=== PATIENT | female | born 1990 | race Caucasian/White ===

== ENCOUNTER 2018-12-22 11:20 | Emergency (ER) | payer BC ==
[2018-12-22 12:09] LABS: CHLORIDE,CL 104 mmol/L (98-107); SODIUM,NA 133 mmol/L (136-145)
--- NOTE | 2018-12-22 14:08 | CR ---
EXAMINATION: Two-view chest (PA and Lateral views). HISTORY: V/Q. prerequisite. FINDINGS: The trachea is midline. The cardiomediastinal silhouette is within normal limits. No pulmonary infiltrates, effusions or pneumothorax. Osseous structures appear unremarkable. IMPRESSION: No acute cardiopulmonary process.
--- NOTE | 2018-12-22 15:23 | NM ---
EXAMINATION: NM ventilation/perfusion study HISTORY: Chest pain COMPARISON: Chest radiograph from the same day TECHNIQUE: Multiplanar imaging obtained of the chest following the administration of 43.1 mCi of technetium 99m labeled DTPA and 3.2 mCi of technetium 99m labeled MAA. FINDINGS: There is no ventilation or perfusion defect. No ventilation or perfusion mismatch. Overall the ventilation and perfusion appear normal. IMPRESSION: Low probability for a pulmonary embolism.
--- NOTE | 2018-12-22 15:29 | EDM.PDOC ---
ED HPI GENERAL MEDICAL PROBLEM - General Chief Complaint: Chest Pain Stated Complaint: CHEST PAIN Time Seen by Provider: 12/22/18 11:22 Source of Information: Reports: Patient History Limitations: Reports: No Limitations - History of Present Illness INITIAL COMMENTS - FREE TEXT/NARRATIVE: HISTORY AND PHYSICAL: History of present illness: Patient is a 28-year-old female who presents to the ED today with concern of mid sternal chest pain 2 days. Patient states she has a history of pulmonary embolism requiring TPA couple years ago. Patient states she is on chronic anticoagulation for life due to this PE. Patient states she is ago she started having midsternal chest pain that was similar to how she felt with her PE. However, she states the pain is less painful this time. Patient denies any other symptoms or injury. Patient denies any other health history. Patient denies fever, chills, shortness of breath, or cough. Denies headache, neck stiff ness, change in vision, syncope, or near syncope. Denies nausea, vomiting, abdominal pain, diarrhea, constipation, or dysuria. Has not noted any blood in urine or stool. Patient has been eating and drinking appropriately. Review of systems: As per history of present illness and below otherwise all systems reviewed and negative. Past medical history: As per history of present illness and as reviewed below otherwise noncontributory. Surgical history: As per history of present illness and as reviewed below otherwise noncontributory. Social history: See social history for further information Family history: As per history of present illness and as reviewed below otherwise noncontributory. Physical exam: General: Patient is alert, oriented, and in no acute distress. Patient sitting comfortably on exam table. HEENT: Atraumatic, normocephalic, pupils equal and reactive bilaterally, negative for conjunctival pallor or scleral icterus, mucous membranes moist, TMs normal bilaterally, throat clear, neck supple, nontender, trachea midline. No drooling or trismus noted. No meningeal signs. No hot potato voice noted. Lungs: Clear to auscultation, breath sounds equal bilaterally, chest nontender. Heart: S1S2, regular rate and rhythm without overt murmur Abdomen: Soft, nondistended, nontender. Negative for masses or hepatosplenomegaly. Negative for costovertebral tenderness. Pelvis: Stable nontender. Genitourinary: Deferred. Rectal: Deferred. Skin: Intact, warm, dry. No lesions or rashes noted. Extremities: Atraumatic, negative for cords or calf pain. Neurovascular unremarkable. Neuro: Awake, alert, oriented. Cranial nerves II through XII unremarkable. Cerebellum unremarkable. Motor and sensory unremarkable throughout. Exam nonfocal. Notes: Dr. Fernandez verbally involved in patient care. Patient does have an allergy to contrast dyes with anaphylaxis. V/Q scan was arranged today for evaluation for PE. Discussed the importance for follow with primary care provider. Voices understanding and is agreeable to plan of care. Denies any further questions or concerns at this time. Diagnostics: CBC, CMP, UA, urine hCG, chest x-ray, VQ scan, EKG, troponin Therapeutics: None Prescription: None Impression: Chest pain, unspecified H/O PE s/p chronic anticoagulation use Plan: 1. Alternate abdomen and Tylenol as directed for pain and discomfort. Follow with her primary care provider as discussed. 2. Return to the ED as needed and as discussed. Definitive disposition and diagnosis as appropriate pending reevaluation and review of above. - Related Data Allergies Allergy/AdvReac Type Severity Reaction Status Date / Time Iodine and Iodide Containing Allergy Anaphylactic Verified 12/22/18 11:29 Produc Shock Penicillins Allergy Rash Verified 12/22/18 11:29 Pork/Porcine Containing Allergy Anaphylactic Verified 12/22/18 11:29 Products Shock propranolol Allergy Rash Verified 12/22/18 11:29 shellfish derived Allergy Anaphylactic Verified 12/22/18 11:29 Shock tramadol Allergy Rash Verified 12/22/18 11:29 Home Meds: Home Meds Apixaban [Eliquis] 12/22/18 [History] Apixaban [Eliquis] 2.5 mg PO BID 12/22/18 [History] Control 12/22/18 [History] EPINEPHrine [Epinephrine] 12/22/18 [History] Fluticasone Propionate [Flovent HFA] 12/22/18 [History] Nortriptyline 20 mg PO BEDTIME 12/22/18 [History] SUMAtriptan Succinate [Imitrex] 25 mg PO PRN 12/22/18 [History] Past Medical History Respiratory History: Reports: PE Musculoskeletal History: Reports: Fibromyalgia - Past Surgical History GI Surgical History: Reports: Cholecystectomy Social & Family History - Family History Family Medical History: Noncontributory - Tobacco Use Smoking Status *Q: Never Smoker - Caffeine Use Caffeine Use: Reports: Coffee - Recreational Drug Use Recreational Drug Use: No ED ROS GENERAL - Review of Systems Review Of Systems: ROS reveals no pertinent complaints other than HPI. ED EXAM, GENERAL - Physical Exam Exam: See Below (see dictation) Course - Vital Signs Last Recorded V/S: Last Vital Signs Temp 36.1 C 12/22/18 11:33 Pulse 69 12/22/18 14:31 Resp 20 12/22/18 14:31 BP 118/77 12/22/18 14:31 Pulse Ox 97 12/22/18 14:31 - Orders/Labs/Meds Orders: Active Orders 24 hr Category Date Time Status EKG Documentation Completion [RC] STAT Care 12/22/18 11:25 Active Labs: Laboratory Tests 12/22/18 12/22/18 12/22/18 Range/Units 11:30 11:30 11:56 WBC 6.64 (4.0-11.0) K/uL RBC 5.06 (4.30-5.90) M/uL Hgb 14.8 (12.0-16.0) g/dL Hct 43.7 (36.0-46.0) % MCV 86.4 (80.0-98.0) fL MCH 29.2 (27.0-32.0) pg MCHC 33.9 (31.0-37.0) g/dL RDW Std Deviation 39.8 (28.0-62.0) fl RDW Coeff of Galen 13 (11.0-15.0) % Plt Count 261 (150-400) K/uL MPV 10.80 (7.40-12.00) fL Neut % (Auto) 54.5 (48.0-80.0) % Lymph % (Auto) 37.2 (16.0-40.0) % Sumner % (Auto) 6.6 (0.0-15.0) % Eos % (Auto) 1.4 (0.0-7.0) % Baso % (Auto) 0.3 (0.0-1.5) % Neut # (Auto) 3.6 (1.4-5.7) K/uL Lymph # (Auto) 2.5 H (0.6-2.4) K/uL Sumner # (Auto) 0.4 (0.0-0.8) K/uL Eos # (Auto) 0.1 (0.0-0.7) K/uL Baso # (Auto) 0.0 (0.0-0.1) K/uL Nucleated RBC % 0.0 /100WBC Nucleated RBCs # 0 K/uL Sodium 133 L (136-145) mmol/L Potassium 4.0 (3.5-5.1) mmol/L Chloride 104 (98-107) mmol/L Carbon Dioxide 21.9 (21.0-32.0) mmol/L BUN 12 (7.0-18.0) mg/dL Creatinine 0.8 (0.6-1.0) mg/dL Est Cr Clr Drug Dosing 98.01 mL/min Estimated GFR (MDRD) > 60.0 ml/min Glucose 111 H (74-106) mg/dL Calcium 8.6 (8.5-10.1) mg/dL Total Bilirubin 0.5 (0.2-1.0) mg/dL AST 27 (15-37) IU/L ALT 33 (14-63) IU/L Alkaline Phosphatase 48 (46-116) U/L Troponin I < 0.050 (0.000-0.056) ng/mL Total Protein 7.2 (6.4-8.2) g/dL Albumin 3.7 (3.4-5.0) g/dL Globulin 3.5 (2.6-4.0) g/dL Albumin/Globulin Ratio 1.1 (0.9-1.6) Urine Color YELLOW Urine Appearance CLEAR Urine pH 6.0 (5.0-8.0) Ur Specific [place] 1.025 (1.001-1.035) Urine Protein NEGATIVE (NEGATIVE) mg/dL Urine Glucose (UA) NEGATIVE (NEGATIVE) mg/dL Urine Ketones NEGATIVE (NEGATIVE) mg/dL Urine Occult Blood NEGATIVE (NEGATIVE) Urine Nitrite NEGATIVE (NEGATIVE) Urine Bilirubin NEGATIVE (NEGATIVE) Urine Urobilinogen 0.2 (<2.0) EU/dL Ur Leukocyte Esterase NEGATIVE (NEGATIVE) Urine HCG, Qual (NEGATIVE) 12/22/18 Range/Units 11:56 WBC (4.0-11.0) K/uL RBC (4.30-5.90) M/uL Hgb (12.0-16.0) g/dL Hct (36.0-46.0) % MCV (80.0-98.0) fL MCH (27.0-32.0) pg MCHC (31.0-37.0) g/dL RDW Std Deviation (28.0-62.0) fl RDW Coeff of Galen (11.0-15.0) % Plt Count (150-400) K/uL MPV (7.40-12.00) fL Neut % (Auto) (48.0-80.0) % Lymph % (Auto) (16.0-40.0) % Sumner % (Auto) (0.0-15.0) % Eos % (Auto) (0.0-7.0) % Baso % (Auto) (0.0-1.5) % Neut # (Auto) (1.4-5.7) K/uL Lymph # (Auto) (0.6-2.4) K/uL Sumner # (Auto) (0.0-0.8) K/uL Eos # (Auto) (0.0-0.7) K/uL Baso # (Auto) (0.0-0.1) K/uL Nucleated RBC % /100WBC Nucleated RBCs # K/uL Sodium (136-145) mmol/L Potassium (3.5-5.1) mmol/L Chloride (98-107) mmol/L Carbon Dioxide (21.0-32.0) mmol/L BUN (7.0-18.0) mg/dL Creatinine (0.6-1.0) mg/dL Est Cr Clr Drug Dosing mL/min Estimated GFR (MDRD) ml/min Glucose (74-106) mg/dL Calcium (8.5-10.1) mg/dL Total Bilirubin (0.2-1.0) mg/dL AST (15-37) IU/L ALT (14-63) IU/L Alkaline Phosphatase (46-116) U/L Troponin I (0.000-0.056) ng/mL Total Protein (6.4-8.2) g/dL Albumin (3.4-5.0) g/dL Globulin (2.6-4.0) g/dL Albumin/Globulin Ratio (0.9-1.6) Urine Color Urine Appearance Urine pH (5.0-8.0) Ur Specific Cambridge (1.001-1.035) Urine Protein (NEGATIVE) mg/dL Urine Glucose (UA) (NEGATIVE) mg/dL Urine Ketones (NEGATIVE) mg/dL Urine Occult Blood (NEGATIVE) Urine Nitrite (NEGATIVE) Urine Bilirubin (NEGATIVE) Urine Urobilinogen (<2.0) EU/dL Ur Leukocyte Esterase (NEGATIVE) Urine HCG, Qual NEGATIVE (NEGATIVE) Departure - Departure Time of Disposition: 15:28 Disposition: Home, Self-Care 01 Clinical Impression: History of pulmonary embolus (PE), Anticoagulated Chest pain Qualifiers: Chest pain type: unspecified Qualified Code(s): R07.9 - Chest pain, unspecified - Discharge Information Instructions: Nonspecific Chest Pain, [id number] Referrals: PCP,Unknown [Primary Care Provider] - Forms: ED Department Discharge Additional Instructions: The following information is given to patients seen in the emergency department who are being discharged to home. This information is to outline your options for follow-up care. We provide all patients seen in our emergency department with a follow-up referral. The need for follow-up, as well as the timing and circumstances, are variable depending upon the specifics of your emergency department visit. If you don't have a primary care physician on staff, we will provide you with a referral. We always advise you to contact your personal physician following an emergency department visit to inform them of the circumstance of the visit and for follow-up with them and/or the need for any referrals to a consulting specialist. The emergency department will also refer you to a specialist when appropriate. This referral assures that you have the opportunity for follow-up care with a specialist. All of these measure are taken in an effort to provide you with optimal care, which includes your follow-up. Under all circumstances we always encourage you to contact your private physician who remains a resource for coordinating your care. When calling for follow-up care, please make the office aware that this follow-up is from your recent emergency room visit. If for any reason you are refused follow-up, please contact the [facility] Emergency Department at and asked to speak to the emergency department charge nurse. [facility] [address] [place] [address] [facility] [address] [place] [id number] 1. Alternate abdomen and Tylenol as directed for pain and discomfort. Follow with her primary care provider as discussed. 2. Return to the ED as needed and as discussed. - My Orders Last 24 Hours: My Active Orders 12/22/18 11:25 EKG Documentation Completion [RC] STAT - Assessment/Plan Last 24 Hours: My Active Orders 12/22/18 11:25 EKG Documentation Completion [RC] STAT
== END 2018-12-22 15:55 | disposition home or self-care (01) ==
LOC: MW.ED 11:20
DX: R07.2 Precordial pain (principal); Z86.711 Personal history of pulmonary embolism; Z79.01 Long term (current) use of anticoagulants; Z79.899 Other long term (current) drug therapy; Z88.0 Allergy status to penicillin; Z88.6 Allergy status to analgesic agent; Z91.011 Allergy to milk products; Z88.8 Allergy status to other drugs, medicaments and biological substances
CPT/HCPCS: 36415; 71046; 78582; 80053; 81003; 81025; 84484; 85025; 93005; 99285; A9540; A9567; 99284

== ENCOUNTER 2019-06-26 21:53 | Emergency (ER) | payer BC ==
--- NOTE | 2019-06-26 22:13 | EDM.PDOC ---
ED HPI GENERAL MEDICAL PROBLEM - General Chief Complaint: Lower Extremity Injury/Pain Stated Complaint: FALL Time Seen by Provider: 06/26/19 21:55 - History of Present Illness INITIAL COMMENTS - FREE TEXT/NARRATIVE: HISTORY AND PHYSICAL: History of present illness: Patient is a healthy 29-year-old female who has a history of a PE and is currently on anticoagulation therapy, eliquis, which she will be taking for life according to her history and who presents after she fell down some stairs twisting and landing on her left knee and ankle. The patient did not hit her head pass out or blackout and has no head neck or back pain but because she is on anticoagulation therapy this case was called as a trauma alert. The patient denies any chest pain or shortness of breath no abdominal pain and she denies . She has no upper extremity complaints and no other complaints of trauma as a result of this fall. She says the pain is mostly localized in her ankle but she also has pain at the knee and the hip which she would also like evaluated. Review of systems: As per history of present illness and below otherwise all systems reviewed and negative. Past medical history: As per history of present illness and as reviewed below otherwise noncontributory. Surgical history: As per history of present illness and as reviewed below otherwise noncontributory. Social history: No reported history of drug or alcohol abuse. Family history: As per history of present illness and as reviewed below otherwise noncontributory. Physical exam: General: Well-developed well-nourished mildly overweight female who is nontoxic and vital signs are noted by me. HEENT: Atraumatic, normocephalic, pupils reactive, negative for conjunctival pallor or scleral icterus, mucous membranes moist, throat clear, neck supple, nontender, trachea midline. No midline step-offs tenderness to apex of the cervical spine Lungs: Clear to auscultation, breath sounds equal bilaterally, chest nontender. Heart: S1S2, regular, and rhythm no overt murmurs Abdomen: Soft, nondistended, nontender. Negative for masses or hepatosplenomegaly. Negative for costovertebral tenderness. Pelvis: Stable nontender. Some minimal tenderness at the left hip but there is no evidence of any soft tissue injuries or ecchymosis appreciated Genitourinary: Deferred. Rectal: Deferred. Extremities: Atraumatic full range of motion of all extremities with the exception of the left lower extremity where there is some mild tenderness with palpation at the left knee and a very minute superficial skin abrasion seen but no joint effusion ecchymosis or anatomic malalignment, there is more tenderness with minimal soft tissue swelling of the left ankle bilaterally extending into the heel but there is no foot metatarsal or toe tenderness defects or deformities. At no area is there ecchymosis or erythema appreciated and there are no joint effusions., Neurovascular unremarkable. Neuro: Awake, alert, oriented. Cranial nerves II through XII unremarkable. Cerebellum unremarkable. Motor and sensory unremarkable throughout. Exam nonfocal. Back: There are no midline step-offs tenderness defects of the thoracic or lumbar spine and no posterior pelvis tenderness Diagnostics: X-ray of hip with pelvis, left knee, left ankle The patient refuses a test showing me that she is not and she is aware of the x-rays that are being performed Therapeutics: Packet, patient declines pain medication Neoprene sling to knee, Manuel bandage to ankle, crutches Due to the patient being on anticoagulation therapy and sustaining a fall this case was called as a trauma alert and I will involve Dr. Cullen her surgeon as needed pending the above results Impression: Fall with injury to left ankle knee and hip Definitive disposition and diagnosis as appropriate pending reevaluation and review of above. left ankle;left knee Pain Score (Numeric/FACES): 9 - Related Data Allergies Allergy/AdvReac Type Severity Reaction Status Date / Time Iodine and Iodide Containing Allergy Anaphylactic Verified 12/22/18 11:29 Produc Shock Penicillins Allergy Rash Verified 12/22/18 11:29 Pork/Porcine Containing Allergy Anaphylactic Verified 12/22/18 11:29 Products Shock propranolol Allergy Rash Verified 12/22/18 11:29 shellfish derived Allergy Anaphylactic Verified 12/22/18 11:29 Shock tramadol Allergy Rash Verified 12/22/18 11:29 Home Meds: Home Meds Apixaban [Eliquis] 12/22/18 [History] Apixaban [Eliquis] 2.5 mg PO BID 12/22/18 [History] Control 12/22/18 [History] EPINEPHrine [Epinephrine] 12/22/18 [History] Fluticasone Propionate [Flovent HFA] 12/22/18 [History] Nortriptyline 20 mg PO BEDTIME 12/22/18 [History] SUMAtriptan Succinate [Imitrex] 25 mg PO PRN 12/22/18 [History] Past Medical History Respiratory History: Reports: PE Musculoskeletal History: Reports: Fibromyalgia - Past Surgical History GI Surgical History: Reports: Cholecystectomy Social & Family History - Family History Family Medical History: Noncontributory - Caffeine Use Caffeine Use: Reports: Coffee Review of Systems - Review of Systems Review Of Systems: Comprehensive ROS is negative, except as noted in HPI. ED EXAM, GENERAL - Physical Exam Exam: See Below (see Dictation) Course - Vital Signs Last Recorded V/S: Last Vital Signs Temp 36.5 C 06/26/19 21:55 Pulse 95 06/26/19 21:55 Resp 18 06/26/19 21:55 BP 150/91 H 06/26/19 21:55 Pulse Ox 98 06/26/19 21:55 - Orders/Labs/Meds Orders: Active Orders 24 hr Category Date Time Status Hip Min 2V or 3V w Pelvis Lt [CR] Stat Exams 06/26/19 22:06 Taken DME for Discharge [COMM] Stat Oth 06/26/19 22:55 Ordered Departure - Departure Time of Disposition: 22:56 Disposition: Home, Self-Care 01 Condition: Good Clinical Impression: Fall Qualifiers: Encounter type: initial encounter Qualified Code(s): W19.XXXA - Unspecified fall, initial encounter Injury of left ankle Qualifiers: Encounter type: initial encounter Qualified Code(s): S99.912A - Unspecified injury of left ankle, initial encounter Injury of left knee Qualifiers: Encounter type: initial encounter Qualified Code(s): S89.92XA - Unspecified injury of left lower leg, initial encounter - Discharge Information Referrals: PCP,None [Primary Care Provider] - Forms: ED Department Discharge Additional Instructions: The following information is given to patients seen in the emergency department who are being discharged to home. This information is to outline your options for follow-up care. We provide all patients seen in our emergency department with a follow-up referral. The need for follow-up, as well as the timing and circumstances, are variable depending upon the specifics of your emergency department visit. If you don't have a primary care physician on staff, we will provide you with a referral. We always advise you to contact your personal physician following an emergency department visit to inform them of the circumstance of the visit and for follow-up with them and/or the need for any referrals to a consulting specialist. The emergency department will also refer you to a specialist when appropriate. This referral assures that you have the opportunity for followup care with a specialist. All of these measure are taken in an effort to provide you with optimal care, which includes your followup. Under all circumstances we always encourage you to contact your private physician who remains a resource for coordinating your care. When calling for followup care, please make the office aware that this follow-up is from your recent emergency room visit. If for any reason you are refused follow-up, please contact the [facility] emergency department at and ask to speak to the emergency department charge nurse. [facility] Special[facility] - [facility] Professional [address], [address] [place] [address] Elevate the area as much as possible and use [id number] pain medications as you choose. Please call and schedule follow-up appointment in the Ortho clinic for reevaluation and further care and return to ER as needed and as discussed. Use the Manuel bandage to your ankle and the neoprene splint to your knee for comfort and use crutches for the next few days to rest the area. Sepsis Event Note - Focused Exam Vital Signs: Vital Signs Temp Pulse Resp BP Pulse Ox 06/26/19 21:55 36.5 C 95 18 150/91 H 98 Date Exam was Performed: 06/26/19 Time Exam was Performed: 22:55 - My Orders Last 24 Hours: My Active Orders 06/26/19 22:06 Hip Min 2V or 3V w Pelvis Lt [CR] Stat 06/26/19 22:55 DME for Discharge [COMM] Stat - Assessment/Plan Last 24 Hours: My Active Orders 06/26/19 22:06 Hip Min 2V or 3V w Pelvis Lt [CR] Stat 06/26/19 22:55 DME for Discharge [COMM] Stat
--- NOTE | 2019-06-26 22:51 | CR ---
INDICATION: fell down stairs, on blood thinner TECHNIQUE: Left knee 3 views. COMPARISON: None. FINDINGS: Bones: Alignment is normal. No fractures or bone lesions. Joint spaces: Unremarkable. Soft tissues: Unremarkable. IMPRESSION: Unremarkable left knee. Dictated by: Caesar Ruby MD @ 06/26/2019 22:49:10 (Electronically Signed)
--- NOTE | 2019-06-26 22:54 | CR ---
INDICATION: Trauma TECHNIQUE: Three views left ankle COMPARISON: None FINDINGS: Bones: Alignment is normal. No fractures. Plantar calcaneal spur. Joint spaces: Unremarkable. Soft tissues: Unremarkable. IMPRESSION: No evidence of acute trauma. Dictated by Caesar Ruby MD @ 06/26/2019 10:52:12 PM Dictated by: Caesar Ruby MD @ 06/26/2019 22:52:18 (Electronically Signed)
--- NOTE | 2019-06-26 22:56 | CR ---
INDICATION: Fall TECHNIQUE: AP pelvis and two views left hip COMPARISON: None FINDINGS: Bones: Alignment is normal. No fractures or bone lesions. Joint spaces: Unremarkable. Soft tissues: Unremarkable. IMPRESSION: No evidence of acute trauma. Dictated by Caesar Ruby MD @ 06/26/2019 10:54:11 PM Dictated by: Caesar Ruby MD @ 06/26/2019 22:54:22 (Electronically Signed)
== END 2019-06-26 23:08 | disposition home or self-care (01) ==
LOC: MW.ED 21:53
DX: S80.212A Abrasion, left knee, initial encounter (principal); S99.912A Unspecified injury of left ankle, initial encounter; S79.912A Unspecified injury of left hip, initial encounter; Z86.711 Personal history of pulmonary embolism; Z88.8 Allergy status to other drugs, medicaments and biological substances; Z91.013 Allergy to seafood; Z91.041 Radiographic dye allergy status; Z88.0 Allergy status to penicillin; Z91.048 Other nonmedicinal substance allergy status; Z88.5 Allergy status to narcotic agent; Z79.01 Long term (current) use of anticoagulants; W10.8XXA Fall (on) (from) other stairs and steps, initial encounter
CPT/HCPCS: 73502-26-LT; 73502-LT; 73562-26-LT; 73562-LT; 73610-26-LT; 73610-LT; 99283; 99283-25

== ENCOUNTER 2019-09-05 09:29 | Emergency (ER) | payer BC ==
[2019-09-05] MEDS ORDERED: Sodium Chloride 0.9% 1,000 ML IV ONE (10:07)
[2019-09-05] MEDS ORDERED: Sodium Chloride 0.9% 2.5 ML Syringe FLUSH PRN (10:08)
[2019-09-05] MEDS ORDERED: Sodium Chloride 0.9% 10 ML Syringe FLUSH PRN (10:08)
--- NOTE | 2019-09-05 10:23 | EDM.PDOC ---
ED HPI GENERAL MEDICAL PROBLEM - General Chief Complaint: Headache Stated Complaint: MIGRAIN AND HEART PALPATATIONS Time Seen by Provider: 09/05/19 10:16 Source of Information: Reports: Patient History Limitations: Reports: No Limitations - History of Present Illness INITIAL COMMENTS - FREE TEXT/NARRATIVE: HISTORY AND PHYSICAL: History of present illness: Patient is a 29-year-old female presents to the ED with complaint of a migraine. Patient has history of migraines and sees the neurology [employer] in [facility]. Patient states she has been getting botox injections. She also takes Imitrex. She states she saw her [employer] on Wednesday and got an IM toradol injection which normally helps but states it is no longer working this time. Patient states she has continued to have a 9/10 headache that is on the left side of her head and throbs. She reports photophobia and phonophobia as well as nausea and vomiting. She denies fevers, chills, head injury or trauma. She denies visual changes. Patient has had an MRI and full negative work up with neurology for her migraines. She states this one is not new or different than ones she had in the past prior to receiving botox injections. Review of systems: As per history of present illness and below otherwise all systems reviewed and negative. Past medical history: As per history of present illness and as reviewed below otherwise noncontributory. Surgical history: As per history of present illness and as reviewed below otherwise noncontributory. Social history: No reported history of drug or alcohol abuse. Family history: As per history of present illness and as reviewed below otherwise noncontributory. Physical exam: General: Patient sitting comfortably in no acute distress and nontoxic appearing HEENT: Atraumatic, normocephalic, pupils reactive, negative for conjunctival pallor or scleral icterus, mucous membranes moist, throat clear, neck supple, nontender, trachea midline. No meningeal signs. Lungs: Clear to auscultation, breath sounds equal bilaterally, chest nontender. Heart: S1S2, regular, negative for clicks, rubs, or overt murmur. Abdomen: Soft, nondistended, nontender. Negative for masses or hepatosplenomegaly. Negative for costovertebral tenderness. No rigidity, rebound , guarding. Pelvis: Stable nontender. Genitourinary: Deferred. Rectal: Deferred. Extremities: Atraumatic, negative for cords or calf pain. Neurovascular unremarkable. Neuro: Awake, alert, oriented. Cranial nerves II through XII unremarkable. Cerebellum unremarkable. Motor and sensory unremarkable throughout. Exam nonfocal. Notes: Patient requesting discharge home after Toradol. Diagnostics: CBC, CMP, head CT Therapeutics: 1L NS IV 15mg Toradol Refused benadryl, zofran, and reglan Prescriptions: none Impression: Headache, history of migraines Plan: Follow up with neurologist Return to ED as needed as discussed Definitive disposition and diagnosis as appropriate pending reevaluation and review of above. Headache Pain Score (Numeric/FACES): 9 - Related Data Allergies Allergy/AdvReac Type Severity Reaction Status Date / Time Iodine and Iodide Containing Allergy Anaphylactic Verified 09/05/19 09:49 Produc Shock morphine Allergy Respiratory Verified 09/05/19 09:49 Depression Penicillins Allergy Rash Verified 09/05/19 09:49 Pork/Porcine Containing Allergy Anaphylactic Verified 09/05/19 09:49 Products Shock propranolol Allergy Rash Verified 09/05/19 09:49 shellfish derived Allergy Anaphylactic Verified 09/05/19 09:49 Shock tramadol Allergy Rash Verified 09/05/19 09:49 Home Meds: Home Meds Apixaban [Eliquis] 2.5 mg PO DAILY 12/22/18 [History] Nortriptyline 50 mg PO BID 12/22/18 [History] SUMAtriptan Succinate [Imitrex] 100 mg PO DAILY PRN 12/22/18 [History] Norethindrone 1 tab PO DAILY 09/05/19 [History] Past Medical History HEENT History: Reports: None Cardiovascular History: Reports: None Respiratory History: Reports: PE Genitourinary History: Reports: None 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 Musculoskeletal History: Reports: Fibromyalgia Neurological History: Reports: Migraines Psychiatric History: Reports: PTSD Endocrine/Metabolic History: Reports: Obesity/BMI 30+ Hematologic History: Reports: None Immunologic History: Reports: None Oncologic (Cancer) History: Reports: None Dermatologic History: Reports: None - Infectious Disease History Infectious Disease History: Reports: Chicken Pox - Past Surgical History Head Surgeries/Procedures: Reports: None GI Surgical History: Reports: Cholecystectomy Female Surgical History: Reports: D&C Social & Family History - Family History Family Medical History: Noncontributory - Tobacco Use Smoking Status *Q: Never Smoker - Caffeine Use Caffeine Use: Reports: Coffee - Recreational Drug Use Recreational Drug Use: No ED ROS GENERAL - Review of Systems Review Of Systems: Comprehensive ROS is negative, except as noted in HPI. - Physical Exam Exam: See Below (see dictation) Course - Vital Signs Last Recorded V/S: Last Vital Signs Temp 97.2 F 09/05/19 09:43 Pulse 111 H 09/05/19 09:43 Resp 20 09/05/19 09:43 BP 128/84 09/05/19 09:43 Pulse Ox 99 09/05/19 09:43 - Orders/Labs/Meds Orders: Active Orders 24 hr Category Date Time Status EKG Documentation Completion [RC] STAT Care 09/05/19 10:07 Active Sodium Chloride 0.9% [Saline Flush] Med 09/05/19 10:08 Active 10 ml FLUSH ASDIRECTED PRN Sodium Chloride 0.9% [Saline Flush] Med 09/05/19 10:08 Active 2.5 ml FLUSH ASDIRECTED PRN Saline Lock Insert [OM.PC] Stat Oth 09/05/19 10:07 Ordered Medication Orders Sodium Chloride (Saline Flush) 10 ml FLUSH ASDIRECTED PRN PRN Reason: Keep Vein Open Sodium Chloride (Saline Flush) 2.5 ml FLUSH ASDIRECTED PRN PRN Reason: Keep Vein Open Labs: Laboratory Tests 09/05/19 09/05/19 Range/Units 10:29 10:29 WBC 6.79 (4.0-11.0) K/uL RBC 5.14 (4.30-5.90) M/uL Hgb 15.2 (12.0-16.0) g/dL Hct 45.0 (36.0-46.0) % MCV 87.5 (80.0-98.0) fL MCH 29.6 (27.0-32.0) pg MCHC 33.8 (31.0-37.0) g/dL RDW Std Deviation 39.5 (28.0-62.0) fl RDW Coeff of Galen 12 (11.0-15.0) % Plt Count 257 (150-400) K/uL MPV 10.70 (7.40-12.00) fL Neut % (Auto) 59.6 (48.0-80.0) % Lymph % (Auto) 32.5 (16.0-40.0) % Buchanan % (Auto) 6.3 (0.0-15.0) % Eos % (Auto) 1.3 (0.0-7.0) % Baso % (Auto) 0.3 (0.0-1.5) % Neut # (Auto) 4.0 (1.4-5.7) K/uL Lymph # (Auto) 2.2 (0.6-2.4) K/uL Buchanan # (Auto) 0.4 (0.0-0.8) K/uL Eos # (Auto) 0.1 (0.0-0.7) K/uL Baso # (Auto) 0.0 (0.0-0.1) K/uL Nucleated RBC % 0.0 /100WBC Nucleated RBCs # 0 K/uL Sodium 140 (136-145) mmol/L Potassium 4.0 (3.5-5.1) mmol/L Chloride 105 (98-107) mmol/L Carbon Dioxide 23.8 (21.0-32.0) mmol/L BUN 11 (7.0-18.0) mg/dL Creatinine 0.8 (0.6-1.0) mg/dL Est Cr Clr Drug Dosing 97.13 mL/min Estimated GFR (MDRD) > 60.0 ml/min Glucose 142 H (74-106) mg/dL Calcium 8.9 (8.5-10.1) mg/dL Total Bilirubin 0.4 (0.2-1.0) mg/dL AST 44 H (15-37) IU/L ALT 61 (14-63) IU/L Alkaline Phosphatase 58 (46-116) U/L Total Protein 7.6 (6.4-8.2) g/dL Albumin 3.6 (3.4-5.0) g/dL Globulin 4.0 (2.6-4.0) g/dL Albumin/Globulin Ratio 0.9 (0.9-1.6) Meds: Medications Generic Name Dose Route Start Last Admin Trade Name Freq PRN Reason Stop Dose Admin Sodium Chloride 10 ml 09/05/19 10:08 Saline Flush FLUSH ASDIRECTED PRN Keep Vein Open Sodium Chloride 2.5 ml 09/05/19 10:08 Saline Flush FLUSH ASDIRECTED PRN Keep Vein Open Discontinued Medications Generic Name Dose Route Start Last Admin Trade Name Taylor PRN Reason Stop Dose Admin Diphenhydramine HCl 25 mg 09/05/19 11:26 Benadryl IVPUSH 09/05/19 11:27 ONETIME ONE Sodium Chloride 1,000 mls @ 999 mls/hr 09/05/19 10:07 09/05/19 10:32 Normal Saline IV 09/05/19 11:07 999 mls/hr STAT ONE Administration Ketorolac Tromethamine 15 mg 09/05/19 11:26 09/05/19 12:10 Toradol IVPUSH 09/05/19 11:27 15 mg ONETIME ONE Administration Metoclopramide HCl 10 mg 09/05/19 11:26 Reglan IVPUSH 09/05/19 11:27 ONETIME ONE Ondansetron HCl 4 mg 09/05/19 11:26 Zofran IVPUSH 09/05/19 11:27 ONETIME ONE Departure - Departure Time of Disposition: 12:17 Disposition: Home, Self-Care 01 Condition: Good Clinical Impression: Headache, History of migraine - Discharge Information Referrals: Cyndy Chang CNM [Primary Care Provider] - Forms: ED Department Discharge Additional Instructions: The following information is given to patients seen in the emergency department who are being discharged to home. This information is to outline your options for follow-up care. We provide all patients seen in our emergency department with a follow-up referral. The need for follow-up, as well as the timing and circumstances, are variable depending upon the specifics of your emergency department visit. If you don't have a primary care physician on staff, we will provide you with a referral. We always advise you to contact your personal physician following an emergency department visit to inform them of the circumstance of the visit and for follow-up with them and/or the need for any referrals to a consulting specialist. The emergency department will also refer you to a specialist when appropriate. This referral assures that you have the opportunity for follow-up care with a specialist. All of these measure are taken in an effort to provide you with optimal care, which includes your follow-up. Under all circumstances we always encourage you to contact your private physician who remains a resource for coordinating your care. When calling for follow-up care, please make the office aware that this follow-up is from your recent emergency room visit. If for any reason you are refused follow-up, please contact the [facility] at and asked to speak to the emergency department charge nurse. [facility] [address] [place] [address] [facility] [address] [place] [id number] Follow up with neurologist Return to ED as needed as discussed Sepsis Event Note - Evaluation Sepsis Screening Result: No Definite Risk - Focused Exam Vital Signs: Vital Signs Temp Pulse Resp BP Pulse Ox 09/05/19 09:43 97.2 F 111 H 20 128/84 99 Date Exam was Performed: 09/05/19 Time Exam was Performed: 12:15 - My Orders Last 24 Hours: My Active Orders 09/05/19 10:07 EKG Documentation Completion [RC] STAT Saline Lock Insert [OM.PC] Stat 09/05/19 10:08 Sodium Chloride 0.9% [Saline Flush] 10 ml FLUSH ASDIRECTED PRN Sodium Chloride 0.9% [Saline Flush] 2.5 ml FLUSH ASDIRECTED PRN - Assessment/Plan Last 24 Hours: My Active Orders 09/05/19 10:07 EKG Documentation Completion [RC] STAT Saline Lock Insert [OM.PC] Stat 09/05/19 10:08 Sodium Chloride 0.9% [Saline Flush] 10 ml FLUSH ASDIRECTED PRN Sodium Chloride 0.9% [Saline Flush] 2.5 ml FLUSH ASDIRECTED PRN
[2019-09-05 11:09] LABS: BLOOD UREA NITROGEN,BUN 11 mg/dL (7.0-18.0); CARBON DIOXIDE,CO2 23.8 mmol/L (21.0-32.0); CHLORIDE,CL 105 mmol/L (98-107); GLUCOSE RANDOM 142 mg/dL (74-106); SODIUM,NA 140 mmol/L (136-145)
--- NOTE | 2019-09-05 11:23 | CT ---
Head CT Technique: Multiple axial sections through the brain were obtained. Intravenous contrast was not utilized. Comparison: No prior intracranial imaging is available. Findings: Ventricles along with basal cisterns and sulci over the convexities are within normal limits. No abnormal parenchymal densities are seen. No evidence of intracranial hemorrhage. No midline shift or mass-effect is seen. Bone window settings were reviewed which show no acute calvarial abnormality. Visualized mastoid sinuses and paranasal sinuses are clear. Impression: 1. Nothing acute is identified on noncontrast head CT exam. Diagnostic code #1 This report was dictated in Mountain Standard Time
[2019-09-05] MEDS ORDERED: diphenhydrAMINE 50 MG/ML SDV IVPUSH ONE (11:26)
[2019-09-05] MEDS ORDERED: Ketorolac 30 MG/ML SDV IVPUSH ONE (11:26)
[2019-09-05] MEDS ORDERED: Ondansetron 4 MG/2 ML SDV IVPUSH ONE (11:26)
[2019-09-05] MEDS ORDERED: Metoclopramide 10 MG/2 ML SDV IVPUSH ONE (11:26)
== END 2019-09-05 12:36 | disposition home or self-care (01) ==
LOC: MW.ED 09:29
DX: R51 Headache (principal); E66.9 Obesity, unspecified; Z68.41 Body mass index [BMI] 40.0-44.9, adult; Z79.899 Other long term (current) drug therapy; Z88.5 Allergy status to narcotic agent; Z88.0 Allergy status to penicillin; Z91.018 Allergy to other foods; Z91.013 Allergy to seafood; Z88.6 Allergy status to analgesic agent
CPT/HCPCS: 36415; 70450; 80053; 85025; 93005; 96361; 96374; 99284; J1885; J7030

== ENCOUNTER 2019-09-20 09:29 | Emergency (ER) | payer BC ==
[2019-09-20] MEDS ORDERED: diphenhydrAMINE 50 MG/ML SDV IM ONE (11:13)
[2019-09-20] MEDS ORDERED: Ketorolac 30 MG/ML SDV IM ONE (11:13)
--- NOTE | 2019-09-20 12:19 | EDM.PDOC ---
ED HPI GENERAL MEDICAL PROBLEM - General Chief Complaint: Headache Stated Complaint: MIGRAINE Time Seen by Provider: 09/20/19 12:14 Source of Information: Reports: Patient History Limitations: Reports: No Limitations - History of Present Illness INITIAL COMMENTS - FREE TEXT/NARRATIVE: This is a 29-year-old female who presents to the emergency room with headache/ history of migraines. Sore throat and ear pain. Onset: Today Duration: Hour(s): Location: Reports: Head, Neck Quality: Reports: Ache, Burning Severity: Moderate Improves with: Reports: None, Cold Therapy, Medication Worsens with: Reports: None, Breathing Associated Symptoms: Reports: No Other Symptoms, Confusion Treatments HYDROMETEOROLOGICAL TECHNICIAN: Reports: Acetaminophen headache Pain Score (Numeric/FACES): 8 - Related Data Allergies Allergy/AdvReac Type Severity Reaction Status Date / Time Iodine and Iodide Containing Allergy Anaphylactic Verified 09/20/19 09:47 Produc Shock morphine Allergy Respiratory Verified 09/20/19 09:47 Depression Penicillins Allergy Rash Verified 09/20/19 09:47 Pork/Porcine Containing Allergy Anaphylactic Verified 09/20/19 09:47 Products Shock propranolol Allergy Rash Verified 09/20/19 09:47 shellfish derived Allergy Anaphylactic Verified 09/20/19 09:47 Shock tramadol Allergy Rash Verified 09/20/19 09:47 Home Meds: Home Meds Apixaban [Eliquis] 2.5 mg PO DAILY 12/22/18 [History] Nortriptyline 50 mg PO BID 12/22/18 [History] SUMAtriptan Succinate [Imitrex] 100 mg PO DAILY PRN 12/22/18 [History] Norethindrone 1 tab PO DAILY 09/05/19 [History] Past Medical History HEENT History: Reports: Impaired Vision Cardiovascular History: Reports: None Respiratory History: Reports: PE Gastrointestinal History: Reports: None Genitourinary History: Reports: None 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 Musculoskeletal History: Reports: Fibromyalgia Neurological History: Reports: Migraines Psychiatric History: Reports: PTSD Endocrine/Metabolic History: Reports: Obesity/BMI 30+ Hematologic History: Reports: None Immunologic History: Reports: None Oncologic (Cancer) History: Reports: None Dermatologic History: Reports: None - Infectious Disease History Infectious Disease History: Reports: None - Past Surgical History Head Surgeries/Procedures: Reports: None HEENT Surgical History: Reports: None Cardiovascular Surgical History: Reports: None Respiratory Surgical History: Reports: None GI Surgical History: Reports: Cholecystectomy Female Surgical History: Reports: D&C Endocrine Surgical History: Reports: None Neurological Surgical History: Reports: None Musculoskeletal Surgical History: Reports: None Oncologic Surgical History: Reports: None Dermatological Surgical History: Reports: None Social & Family History - Family History Family Medical History: Noncontributory - Tobacco Use Smoking Status *Q: Never Smoker Second Hand Smoke Exposure: No - Caffeine Use Caffeine Use: Reports: Coffee - Recreational Drug Use Recreational Drug Use: No ED ROS GENERAL - Review of Systems Review Of Systems: See Below Constitutional: Reports: No Symptoms, Chills, Malaise, Night Sweats. Denies: Fever, Diaphoresis HEENT: Reports: No Symptoms, Throat Pain. Denies: Contact Lenses, Dental Pain, Eye Pain, Glasses Respiratory: Reports: No Symptoms Cardiovascular: Reports: No Symptoms. Denies: Chest Pain, Blood Pressure Problem Endocrine: Reports: No Symptoms. Denies: Fatigue, High Glucose GI/Abdominal: Reports: No Symptoms : Reports: No Symptoms Musculoskeletal: Reports: No Symptoms Skin: Reports: No Symptoms Neurological: Reports: No Symptoms Psychiatric: Reports: No Symptoms Hematologic/Lymphatic: Reports: No Symptoms, Anemia Immunologic: Reports: No Symptoms, Anaphylaxis - Physical Exam Exam: See Below Text/Narrative:: This is a 29-year-old female who presents the emergency room with headache and sore throat. On exam the patient HEENT is normal Lungs are clear Abdomen soft nontender Exam Limited By: No Limitations General Appearance: Alert, WD/WN, No Apparent Distress Eye Exam: Bilateral Eye: Normal Fundi, Normal Inspection Ears: Normal External Exam, Normal Canal, Hearing Grossly Normal, Normal TMs Nose: Normal Inspection, Normal Mucosa, No Blood Throat/Mouth: Normal Inspection, Normal Lips, Normal Teeth, Normal Oropharynx, Normal Voice, No Airway Compromise Head Exam: Atraumatic, Normocephalic Neck: Normal Inspection, Supple, Non-Tender, Full Range of Motion Respiratory/Chest: No Respiratory Distress, Lungs Clear, Normal Breath Sounds, No Accessory Muscle Use, Chest Non-Tender Cardiovascular: Normal Peripheral Pulses, Regular Rate, Rhythm, No Edema, No JVD , No Murmur, No Rub GI/Abdominal: Normal Bowel Sounds, Soft, Non-Tender, No Organomegaly, No Distention, No Abnormal Bruit, No Mass, Pelvis Stable (Female) Exam: No: Normal External Exam, Normal Speculum Exam, Normal Bimanual Exam Rectal (Female) Exam: Deferred. No: Normal Exam, Normal Rectal Tone Neuro Exam (Abbreviated): Alert, Oriented, CN II-XII Intact, Normal Cognition, Normal Gait, Normal Reflexes, No Motor/Sensory Deficits Back Exam: Normal Inspection Extremities: Normal Inspection, Normal Range of Motion, No Pedal Edema, Normal Capillary Refill Psychiatric: Normal Affect, Normal Mood Skin Exam: Warm, Dry, Intact, Normal Color Course - Vital Signs Last Recorded V/S: Last Vital Signs Temp 97.4 F 09/20/19 09:44 Pulse 90 09/20/19 11:22 Resp 16 09/20/19 11:22 BP 135/83 09/20/19 11:22 Pulse Ox 96 09/20/19 11:22 - Orders/Labs/Meds Orders: Active Orders 24 hr Category Date Time Status CULTURE STREP A CONFIRMATION [RM] Stat Lab 09/20/19 11:40 Results STREP SCRN A RAPID W CULT CONF [RM] Stat Lab 09/20/19 11:40 Results Isolation [COMM] Routine Oth 09/20/19 11:15 Active Meds: Medications Discontinued Medications Generic Name Dose Route Start Last Admin Trade Name Taylor PRN Reason Stop Dose Admin Diphenhydramine HCl 50 mg 09/20/19 11:13 09/20/19 11:21 Benadryl IM 09/20/19 11:14 50 mg ONETIME ONE Administration Ketorolac Tromethamine 30 mg 09/20/19 11:13 09/20/19 11:21 Toradol IM 09/20/19 11:14 30 mg ONETIME ONE Administration Departure - Departure Time of Disposition: 12:20 Disposition: Home, Self-Care 01 Condition: Good Clinical Impression: Viral syndrome - Discharge Information *PRESCRIPTION DRUG MONITORING PROGRAM REVIEWED*: No Instructions: Viral Respiratory Infection, [id number] Referrals: PCP,None [Primary Care Provider] - Sepsis Event Note - Evaluation Sepsis Screening Result: No Definite Risk - Focused Exam Vital Signs: Vital Signs Temp Pulse Resp BP Pulse Ox 09/20/19 11:22 90 16 135/83 96 09/20/19 09:44 97.4 F 103 H 18 136/85 99 Date Exam was Performed: 09/20/19 Time Exam was Performed: 12:14 - My Orders Last 24 Hours: My Active Orders 09/20/19 11:15 Isolation [COMM] Routine 09/20/19 11:40 CULTURE STREP A CONFIRMATION [RM] Stat STREP SCRN A RAPID W CULT CONF [RM] Stat - Assessment/Plan Last 24 Hours: My Active Orders 09/20/19 11:15 Isolation [COMM] Routine 09/20/19 11:40 CULTURE STREP A CONFIRMATION [RM] Stat STREP SCRN A RAPID W CULT CONF [RM] Stat
== END 2019-09-20 12:35 | disposition home or self-care (01) ==
LOC: MW.ED 09:29
DX: B34.9 Viral infection, unspecified (principal); E66.9 Obesity, unspecified; Z88.5 Allergy status to narcotic agent; Z91.013 Allergy to seafood; Z86.711 Personal history of pulmonary embolism; Z90.49 Acquired absence of other specified parts of digestive tract; Z88.0 Allergy status to penicillin; Z91.018 Allergy to other foods
CPT/HCPCS: 87081; 87804; 87880; 96372; 99283; J1200; J1885; 99282